=== PATIENT | male | born 1990 | race Hispanic/Latino ===

== ENCOUNTER 2019-04-18 16:51 | Emergency (ER) | payer SELFPAY ==
[~2019-04-18] VITALS: Ht 167.6 cm; Wt 93.0 kg
--- OUTSIDE RECORDS SUMMARY | 2019-04-18 16:54 | XMS REPORT ---
Author Author [facility] Address Unknown Phone Unavailable Care Team Providers Care [employer] Gilder Name Role Phone Unavailable Unavailable Payers Payer Name Policy Type Policy Number Effective Date Expiration Date Problems This patient has no known problems. Allergies, Adverse Reactions, Alerts Allergy Name Allergy Type Status Severity Reaction(s) Onset Date Inactive Date Treating Clinician Comments No Known Allergies DA Active U 2016-12-20 00:00:00 Medications This patient has no known medications.
== END 2019-04-18 17:12 | disposition home or self-care (01) ==
LOC: ER 16:51
DX: L02.413 Cutaneous abscess of right upper limb (principal); J45.909 Unspecified asthma, uncomplicated
CPT/HCPCS: 99283

== ENCOUNTER 2024-10-13 13:06 | Inpatient (IN) | payer SELFPAY ==
[~2024-10-13] VITALS: Ht 162.6 cm; Wt 112.0 kg
[2024-10-13] VITALS (11 sets, daily range): BP systolic 88–139; BP diastolic 55–116; PULSE 80–140; RESP 13–20; TEMP 98–98.1; O2SAT 95–100
[2024-10-13] MEDS ORDERED: ADENOSINE 6MG/2ML 1 ML ONE (13:18)
[2024-10-13] MEDS ORDERED: SODIUM CHLORIDE 0.9% 1000ML 1,000 ML ONE (13:23)
[2024-10-13] MEDS ORDERED: METOPROLOL TARTRATE 25 MG TAB ONE (13:23)
[2024-10-13] MEDS: METOPROLOL TARTRATE 25 MG TAB PO ONE ×2 (13:36→15:39)
[2024-10-13] MEDS: SODIUM CHLORIDE 0.9% 1000ML 1,000 ML IV STA ×3 (13:36→15:27)
[2024-10-13 13:45] LABS: BASOPHILS # (AUTO) 0.1 (0.0-0.1); BASOPHILS % 0.3 % (0.0-1.0); EOSINOPHILS # (AUTO) 0.2 (0.0-0.4); EOSINOPHILS % 0.8 % (0.0-6.0); HEMATOCRIT 49.1 % (38.2-49.6); HEMOGLOBIN 16.7 g/dL (14.0-18.0); LYMPHOCYTES % 20.7 % (18.0-39.1); MEAN CORPUSCULAR HEMOGLOBIN 30.2 pg (28-32); MEAN CORPUSCULAR VOLUME 88.8 fL (81-99); MONOCYTES # (AUTO) 2.1 (0.2-0.8); MONOCYTES % 8.8 % (4.4-11.3); NEUTROPHILS # (AUTO) 16.5 (2.1-6.9); PLATELET COUNT 330 x10e3/uL (140-360); RED BLOOD COUNT 5.53 x10e6/uL (4.3-5.7); RED CELL DISTRIBUTION WIDTH 13.4 % (11.7-14.4); WHITE BLOOD COUNT 23.95 x10e3/uL (4.8-10.8)
[2024-10-13 13:49] LABS: INR 0.94; PROTHROMBIN TIME 13.2 seconds (11.9-14.5)
[2024-10-13 13:50] LABS: PARTIAL THROMBOPLASTIN TIME 28.8 seconds (23.8-35.5)
[2024-10-13 14:04] LABS: ALBUMIN 3.8 g/dL (3.5-5.0); ALBUMIN/GLOBULIN RATIO 1.1 (0.8-2.0); BILIRUBIN,TOTAL 0.5 mg/dL (0.2-1.2); CALCIUM 8.9 mg/dL (8.4-10.2); MAGNESIUM 1.9 MG/DL (1.3-2.1); TOTAL PROTEIN 7.2 g/dL (6.5-8.1)
[2024-10-13 14:11] LABS: TROPONIN I 0.024 ng/mL (0-0.300)
[2024-10-13 14:32] LABS: AMPHETAMINES SCREEN,URINE NEGATIVE (NEGATIVE); BENZODIAZEPINES SCREEN,URINE NEGATIVE (NEGATIVE); BILIRUBIN,URINE SMALL (NEGATIVE); CANNABINOIDS SCREEN,URINE NEGATIVE (NEGATIVE); CLARITY,URINE CLEAR (CLEAR); COCAINE SCREEN,URINE NEGATIVE (NEGATIVE); COLOR,URINE YELLOW (YELLOW); GLUCOSE, URINE NEGATIVE (NEGATIVE); KETONES,URINE 1+ (NEGATIVE); LEUKOCYTE ESTERASE ,URINE NEGATIVE (NEGATIVE); METHADONE SCREEN, URINE NEGATIVE (NEGATIVE); NITRITE,URINE NEGATIVE (NEGATIVE); OPIATES SCREEN,URINE NEGATIVE (NEGATIVE); PH,URINE 6 (5 - 7); PHENCYCLIDINE SCREEN,URINE NEGATIVE (NEGATIVE); PROTEIN,URINE DIPSTICK TRACE (NEGATIVE); URINE UROBILINOGEN 0.2 mg/dL (0.2 - 1)
[2024-10-13 14:35] LABS: BACTERIA,URINE MODERATE /HPF; EPITHELIAL CELLS,URINE FEW /LPF; MUCUS,URINE MANY; RBC,URINE 0-5 /HPF (0-5); WBC,URINE (MAN) 0-5 /HPF (0-5)
[2024-10-13] MEDS: METOPROLOL TARTRATE INJ 1 MG/ML VIAL IV ONE ×3 (14:45→23:18)
[2024-10-13 15:08] LABS: CORONAVIRUS COVID-19 AG NEGATIVE (NEGATIVE); INFLUENZA A AG NEGATIVE (NEGATIVE); INFLUENZA B AG NEGATIVE (NEGATIVE); STREPTOCOCCUS GRP A ANTIGEN POSITIVE (NEGATIVE)
[2024-10-13] MEDS ORDERED: ADENOSINE 6MG/2ML 2 ML ONE (15:11)
[2024-10-13 16:21] LABS: BASOPHILS % 0.2 % (0.0-1.0); EOSINOPHILS # (AUTO) 0.2 (0.0-0.4); EOSINOPHILS % 0.9 % (0.0-6.0); HEMOGLOBIN 13.7 g/dL (14.0-18.0); LYMPHOCYTES # (AUTO) 2.8 (1.0-3.2); LYMPHOCYTES % 17.3 % (18.0-39.1); MEAN CORPUSCULAR HEMOGLOBIN 30.5 pg (28-32); MEAN CORPUSCULAR HGB CONC 34.3 g/dL (31-35); MEAN CORPUSCULAR VOLUME 89.1 fL (81-99); MONOCYTES # (AUTO) 1.4 (0.2-0.8); MONOCYTES % 8.8 % (4.4-11.3); NEUTROPHILS # (AUTO) 11.8 (2.1-6.9); NEUTROPHILS % 72.3 % (38.7-80.0); PLATELET COUNT 227 x10e3/uL (140-360); RED BLOOD COUNT 4.49 x10e6/uL (4.3-5.7); RED CELL DISTRIBUTION WIDTH 13.4 % (11.7-14.4); WHITE BLOOD COUNT 16.34 x10e3/uL (4.8-10.8)
[2024-10-13] MEDS: PENICILLIN G BENZATHINE LA 1.2 MU TBX IM STA (16:21)
[2024-10-13 16:42] LABS: TROPONIN I 0.044 ng/mL (0-0.300)
[2024-10-13] MEDS: SODIUM CHLORIDE 0.9% 1000ML 1,000 ML IV SCH ×2 (18:21→19:15)
[2024-10-13] MEDS: DIGOXIN INJ 0.25 MG/ML 2 ML AMP IV ONE (18:26)
[2024-10-13] MEDS ORDERED: ONDANSETRON HCL INJ 2MG/ML 2ML 2 MG/ML VIAL IV PRN (19:15)
[2024-10-13] MEDS ORDERED: no meds (20:34)
[2024-10-13] MEDS: DILTIAZEM HCL 5 MG/ML 5 ML VIAL IV STA (20:43)
[2024-10-13] MEDS: METOPROLOL TARTRATE INJ 1 MG/ML VIAL IV STA (20:43)
[2024-10-13] MEDS: METOPROLOL SUCCINATE 50 MG TAB XL PO ONE (20:44)
[2024-10-13] MEDS: METOPROLOL SUCCINATE 50 MG TAB XL PO SCH (23:20)
[2024-10-13] MEDS: METOPROLOL TARTRATE INJ 1 MG/ML VIAL ONE (23:20)
[2024-10-13] MEDS: METOPROLOL SUCCINATE 50 MG TAB XL ONE (23:21)
[2024-10-14] VITALS (27 sets, daily range): BP systolic 82–118; BP diastolic 48–80; PULSE 57–167; RESP 11–23; TEMP 97.7–98.7; O2SAT 96–100
[2024-10-14] MEDS ORDERED: LIDOCAINE 4% PATCH TP PRN (00:45)
[2024-10-14] MEDS ORDERED: MELATONIN 5 MG TABLET PO PRN (00:45)
[2024-10-14] MEDS ORDERED: METOPROLOL TARTRATE INJ 1 MG/ML VIAL IV PRN (00:45)
[2024-10-14] MEDS ORDERED: HYDRALAZINE HCL 20 MG/ML VIAL IV PRN (00:45)
[2024-10-14] MEDS ORDERED: SIMETHICONE 80 MG CHEW PO PRN (00:45)
[2024-10-14] MEDS ORDERED: DOCUSATE SODIUM 100 MG CAP PO PRN (00:45)
[2024-10-14] MEDS ORDERED: ALBUTEROL/IPRATROPIUM 3 ML NEB NEB PRN (00:45)
[2024-10-14] MEDS ORDERED: ACETAMINOPHEN 325 MG TAB PO PRN (00:45)
[2024-10-14] MEDS ORDERED: DEXTROSE 50% SYRINGE 50 ML IV PRN (00:45)
[2024-10-14] MEDS ORDERED: BENZONATATE 100 MG CAP PO PRN (00:45)
[2024-10-14] MEDS ORDERED: POTASSIUM CHLORIDE 20 MEQ TAB CR PO PRN (00:45)
[2024-10-14] MEDS ORDERED: DIPHENHYDRAMINE HCL 25 MG CAP PO PRN (00:45)
[2024-10-14] MEDS ORDERED: ADENOSINE 6 MG/2 ML VIAL IV PRN ×2 (01:30→02:00)
[2024-10-14] MEDS: ADENOSINE 6 MG/2 ML VIAL IV PRN (01:45)
[2024-10-14 02:16] LABS: TROPONIN I 0.025 ng/mL (0-0.300)
[2024-10-14] MEDS: ADENOSINE 6MG/2ML 1 ML ONE (02:25)
[2024-10-14 06:30] LABS: BASOPHILS % 0.3 % (0.0-1.0); EOSINOPHILS # (AUTO) 0.3 (0.0-0.4); EOSINOPHILS % 2.3 % (0.0-6.0); HEMATOCRIT 42.4 % (38.2-49.6); HEMOGLOBIN 14.3 g/dL (14.0-18.0); LYMPHOCYTES # (AUTO) 3.1 (1.0-3.2); LYMPHOCYTES % 25.3 % (18.0-39.1); MEAN CORPUSCULAR HGB CONC 33.7 g/dL (31-35); MEAN CORPUSCULAR VOLUME 88.9 fL (81-99); MONOCYTES # (AUTO) 1.3 (0.2-0.8); MONOCYTES % 10.6 % (4.4-11.3); NEUTROPHILS # (AUTO) 7.5 (2.1-6.9); NEUTROPHILS % 61.3 % (38.7-80.0); PLATELET COUNT 247 x10e3/uL (140-360); RED BLOOD COUNT 4.77 x10e6/uL (4.3-5.7); RED CELL DISTRIBUTION WIDTH 13.3 % (11.7-14.4); WHITE BLOOD COUNT 12.31 x10e3/uL (4.8-10.8)
[2024-10-14 06:54] LABS: ANION GAP 10.1 mmol/L (8-16); BILIRUBIN,TOTAL 0.3 mg/dL (0.2-1.2); CALCIUM 8.4 mg/dL (8.4-10.2); CHOL/HDL RATIO 4.1 (3.9-4.7); CREATININE, SERUM 0.83 mg/dL (0.72-1.25); POTASSIUM 5.1 mmol/L (3.5-5.1)
[2024-10-14 07:23] LABS: TROPONIN I 0.026 ng/mL (0-0.300)
[2024-10-14] MEDS: PANTOPRAZOLE SOD 40 MG TABEC PO SCH (07:43)
[2024-10-14] MEDS: CEFTRIAXONE 2 GM in SODIUM CHLORIDE 0.9% 100 ML IV SCH (11:55)
[2024-10-14 13:29] LABS: TROPONIN I 0.017 ng/mL (0-0.300)
[2024-10-14] MEDS: ENOXAPARIN SOD INJ 40 MG/0.4 ML SYR SC SCH (16:49)
[2024-10-15] VITALS (15 sets, daily range): BP systolic 85–144; BP diastolic 48–95; PULSE 61–89; RESP 12–19; TEMP 97.7–98.2; O2SAT 95–100
[2024-10-15] MEDS ORDERED: SODIUM CHLORIDE 0.9% 250ML 250 ML ONE (23:58)
[2024-10-16 01:18] VITALS: BP 125/86; PULSE 76; RESP 18; TEMP 97.7; O2SAT 100
[2024-10-16 05:44] LABS: BASOPHILS % 0.3 % (0.0-1.0); EOSINOPHILS # (AUTO) 0.3 (0.0-0.4); EOSINOPHILS % 2.2 % (0.0-6.0); HEMATOCRIT 47.9 % (38.2-49.6); HEMOGLOBIN 16.5 g/dL (14.0-18.0); LYMPHOCYTES % 26.3 % (18.0-39.1); MEAN CORPUSCULAR HEMOGLOBIN 30.1 pg (28-32); MEAN CORPUSCULAR HGB CONC 34.4 g/dL (31-35); MEAN CORPUSCULAR VOLUME 87.4 fL (81-99); MONOCYTES % 8.7 % (4.4-11.3); NEUTROPHILS # (AUTO) 7.2 (2.1-6.9); NEUTROPHILS % 62.1 % (38.7-80.0); PLATELET COUNT 326 x10e3/uL (140-360); RED BLOOD COUNT 5.48 x10e6/uL (4.3-5.7); RED CELL DISTRIBUTION WIDTH 12.9 % (11.7-14.4); WHITE BLOOD COUNT 11.56 x10e3/uL (4.8-10.8)
[2024-10-16 06:15] LABS: ANION GAP 15.1 mmol/L (8-16); CALCIUM 9.9 mg/dL (8.4-10.2); POTASSIUM 4.1 mmol/L (3.5-5.1)
[2024-10-16 08:19] VITALS: BP 114/86; PULSE 82; RESP 18; TEMP 97.8; O2SAT 99
[2024-10-16 08:22] VITALS: PULSE 82; RESP 18; O2SAT 95
[2024-10-16] MEDS: METOPROLOL SUCCINATE 25 MG TAB XL PO SCH (09:58)
[2024-10-16 12:31] VITALS: BP 120/79; PULSE 80; RESP 18; TEMP 98.1; O2SAT 97
[2024-10-16] MEDS ORDERED: SODIUM CHLORIDE 0.9% 250ML 250 ML ONE (12:40)
[2024-10-16] MEDS ORDERED: ONDANSETRON HCL 4 MG ORAL DISINTEGRATING TAB PO PRN (14:30)
[2024-10-16 15:08] VITALS: PULSE 80; RESP 18; O2SAT 97
== END 2024-10-16 15:35 | disposition home or self-care (01) | DRG 872 ==
LOC: ER 13:11 → ERHOLD 19:09 → ICU 20:19 → MED/SURG2 10-15 20:20
PROVIDERS: ADMIT Internal Medicine; ATTEND Internal Medicine
PROC: 3E0333Z Introduction of Anti-inflammatory into Peripheral Vein, Percutaneous Approach (ICD-10-PCS; principal; 2024-10-13)
DX: A40.0 Sepsis due to streptococcus, group A (principal); I47.10 Supraventricular tachycardia, unspecified; J02.0 Streptococcal pharyngitis; Z11.52 Encounter for screening for COVID-19; F17.200 Nicotine dependence, unspecified, uncomplicated
CPT/HCPCS: 36415; 71045; 80048; 80053; 80061; 80307; 81001; 82550; 83518; 83605; 83735; 83880; 84443; 84484; 85025; 85379; 85610; 85730; 87040; 87086; 93005; 93306; 94799; 99252; 99284; J0153; J0696; J1160; J1650; J2470; J7030; J7050